=== PATIENT | female | born 1970 | race Caucasian/White ===

== ENCOUNTER 2023-04-28 10:22 | Outpatient (CLI) | payer OTHER, SELFPAY | END 2023-04-28 10:23 | disposition home or self-care (01) | PROVIDERS: PCP Physician Assistant Medical; Visit Provider Physician Assistant Medical | DX: Z00.00 Encounter for general adult medical examination without abnormal findings (principal); I10 Essential (primary) hypertension; Z13.6 Encounter for screening for cardiovascular disorders; Z13.29 Encounter for screening for other suspected endocrine disorder | CPT/HCPCS: 80053; 80061; 84443 ==

== ENCOUNTER 2023-07-04 09:05 | Outpatient (CLI) | payer OTHER, SELFPAY | END 2023-07-04 09:06 | disposition home or self-care (01) | LOC: NFLDREF 07-05 07:00 | PROVIDERS: PCP Physician Assistant Medical; Referring Provider Physician Assistant Medical; Visit Provider Physician Assistant Medical | DX: R79.89 Other specified abnormal findings of blood chemistry (principal); I10 Essential (primary) hypertension | CPT/HCPCS: 84450; 84460 ==

== ENCOUNTER 2023-08-03 07:02 | Outpatient (CLI) | payer OTHER, SELFPAY ==
--- NOTE | 2023-08-03 07:15 | US_ITS ---
Patient: DEE LAUGHLIN Facility:?[facility] Patient ID:?[id number] Site Patient ID:?[id number]. Site :?[id number] Study:?US-Abdomen RUQ-08/03/2023 7:42:39 AM Ordering Physician:?ELIZA LAL Final Report: INDICATION: Elevated liver function tests COMPARISON: none TECHNIQUE: Real time lebron scale imaging and color Doppler analysis was performed of the right upper quadrant. FINDINGS: The patient`s liver is of normal size and has diffusely increased echogenicity. There is a normal appearance of the hepatic IVC and proximal abdominal aorta. There is no evidence of ascites. The gallbladder is absent. The common bile duct is of normal size and measures 4 mm in diameter at the level of the shanti hepatis. The pancreas is incompletely visualized. There is no evidence of a stone or hydronephrosis within the right kidney. The right kidney measures 10.8 cm in length. IMPRESSION: Diffuse hepatic steatosis. Status post cholecystectomy without biliary obstruction. Dictated by Charles Singer MD @ 08/03/2023 10:41:20 AM Signed by:?Charles Singer MD @08/03/2023 10:41:20 AM (Electronic Signature)
== END 2023-08-03 07:03 | disposition home or self-care (01) ==
LOC: US 07:04
PROVIDERS: PCP Physician Assistant Medical; Visit Provider Physician Assistant Medical
DX: R79.89 Other specified abnormal findings of blood chemistry (principal); K76.0 Fatty (change of) liver, not elsewhere classified
CPT/HCPCS: 76705

== ENCOUNTER 2024-05-13 08:22 | Outpatient (CLI) | payer OTHER, SELFPAY | END 2024-05-13 08:23 | disposition home or self-care (01) | LOC: NFLDREF 05-15 02:08 | PROVIDERS: PCP Physician Assistant Medical; Referring Provider Physician Assistant Medical; Visit Provider Physician Assistant Medical | DX: R79.89 Other specified abnormal findings of blood chemistry (principal); I10 Essential (primary) hypertension; K21.9 Gastro-esophageal reflux disease without esophagitis | CPT/HCPCS: 80053; 80061; 84443 ==